=== PATIENT | male | born 1995 | race Caucasian/White ===

== ENCOUNTER 2024-12-14 21:01 | Emergency (ER) | payer MEDICAID ==
[~2024-12-14] VITALS: Ht 177.8 cm; Wt 140.7 kg
--- NOTE | 2024-12-14 21:59 | RADIOLOGY REPORT ---
DI CHEST,TWO VIEWS CLINICAL HISTORY: COUGH COMPARISON: None TECHNIQUE: Frontal and lateral view of the chest was obtained FINDINGS: Lines and Tubes: None Lungs: No focal consolidation. Pleura: No effusion. No pneumothorax. Cardiomediastinal contours: Unremarkable Bones: No acute osseous abnormality. IMPRESSION: No acute cardiopulmonary disease.
[2024-12-14] MEDS ORDERED: PRED20TA PO (23:28)
[2024-12-14] MEDS ORDERED: DOXY-1 PO (23:28)
--- NOTE | 2024-12-14 23:28 | Physician Documentation ---
History of Present Illness ~ Chief Complaint: Cough Stated Complaint: COUGH Time Seen by MD: 22:05 HPI This is a 29-year-old male history of asthma who presents with two weeks of progressively worsening cough, patient reports that he has a rescue inhaler that does somewhat help with cough and shortness of breath though stopped fully effective. Patient reports cough is productive. Patient reports no fever. Medication Reconciliation Allergies: Coded Allergies: perfume (Verified Allergy, Mild, 12/14/24) SOB Scheduled Doxycycline Hyclate (Doxycycline Hyclate), 1 CAP PO Q12H Prednisone* (Prednisone*), 3 TAB PO DAILY Past Medical History Past Medical History: Asthma Review of Systems ROS Cough as stated above in the HPI, otherwise all systems are reviewed and negative. Physical Exam Vital Signs: Temperature: 98.1, Source: Oral, Heart Rate: 92, Respiratory Rate: 17, BP: 158/102, Pulse Oximetry: 97, Weight: 140.680 Oxygen Flow Rate: 0 Physical Exam VITALS: Reviewed and as above. GENERAL: Alert, nontoxic appearing, no apparent distress. RESPIRATORY: No increased work of breathing, no respiratory distress, speaking in full clear sentences, scattered rhonchi in all mckeon otherwise adequate aeration CV: Regular rate and rhythm no murmur Progress Results/Orders Results/Orders Orders - GUERLINE BAUMANN MANAGER OF PATIENT Chest,Two Views (12/14/24 21:16) Completed Orders - GUERLINE BAUMANN MANAGER OF PATIENT Chest,Two Views (12/14/24 21:16) Doxycycline 100mg Capsule (Vibramycin 10 (12/14/24 23:30) Prednisone Tablet (Prednisone Tablet) (12/14/24 23:30) Medications Received in ER Medications (Trade) Dose Ordered Sig/Srikanth Route PRN Reason Start Time Stop Time Status Last Admin Dose Admin (VIBRAMYCIN 100mg capsule) 100 mg ONCE STAT PO 12/14/24 23:30 12/14/24 23:32 DC 12/14/24 23:43 100 MG (predniSONE tablet) 60 mg ONCE ONCE PO 12/14/24 23:30 12/14/24 23:32 DC 12/14/24 23:43 60 MG Vital Signs 12/14/24 12/14/24 21:08 23:49 Temp 98.1 98.6 Pulse 92 90 Resp 17 18 B/P (MAP) 158/102 150/99 Pulse Ox 97 99 O2 Flow Rate 0 EKG/XRAY/CT/US/VASC/MRI Chest X-Ray : Additional Comments DI CHEST,TWO VIEWS CLINICAL HISTORY: COUGH COMPARISON: None TECHNIQUE: Frontal and lateral view of the chest was obtained FINDINGS: Lines and Tubes: None Lungs: No focal consolidation. Pleura: No effusion. No pneumothorax. Cardiomediastinal contours: Unremarkable Bones: No acute osseous abnormality. IMPRESSION: No acute cardiopulmonary disease. Electronically Signed by:BRANDY DANIELLE DO Date & Time: 12/14/242155 Dictated by: BRANDY DANIELLE DO Dictation date and time: 12/14/242155 I have reviewed and agree with the radiology report. I have reviewed and interpreted the imaging as: No focal consolidation or pn eumothorax Medical Decision Making Findings This 29-year-old male presented with two weeks of progressively worsening cough, sounds demonstrated scattered rhonchi in all mckeon without wheezes or evidence of decreased aeration, patient was otherwise well-appearing with no evidence of respiratory distress or hypoxia. Symptoms and exam consistent with bronchitis. Given patient's history of asthma he will be treated with antibiotics and steroids, patient already has prescription for albuterol inhaler which he is able to utilize as needed for shortness of breath and wheezing. Remainder of exam benign , vital signs stable, and patient appropriate for outpatient follow up. Patient provided home care instructions, follow up instructions, and careful return to care precautions which he verbalized understanding of. Differential Dx:Considerations: Include: Allergic rhinitis, Influenza, Pneumonia, Pnuemonitis, URI Departure Disposition: 01 HOME / SELF CARE / HOMELESS Impression: Primary Impression: Acute bronchitis Qualified Codes: J20.9 - Acute bronchitis, unspecified Condition: Improved Discharge Instructions: Bronchitis Additional Instructions: Please take antibiotics and steroids as prescribed. Please continue use rescue inhaler as prescribed. Please follow up with your primary care provider in the next few days. Please return to the emergency department for any new or worsening concerning symptoms. Referrals: NO PRIMARY CARE PROVIDER (PCP) Prescriptions Prednisone* (Prednisone*) 20 Mg Tablet 3 TAB PO DAILY, #15 TAB Prov: GUERLINE BAUMANNP 12/14/24 Doxycycline Hyclate (Doxycycline Hyclate) 100 Mg Capsule 1 CAP PO Q12H for 5 Days, #10 CAP Prov: GUERLINE BAUMANN 12/14/24 Education Educated: Patient Educated regarding: diagnosis, treatment, prognosis, need for follow up Signature Scribe Signature: No scribe Attestation: The note accurately reflects work and decisions made by me.CHILANGO Herman 12/15/24 01:12 GUERLINE BAUMANN Dec 14, 2024 23:28
[2024-12-14] MEDS: DOXYCYCLINE 100MG CAPSULE PO STA (23:43)
[2024-12-14] MEDS: predniSONE 20 mg tablet PO ONE (23:43)
[2024-12-14 23:49] VITALS: BP 150/99; PULSE 90; RESP 18; TEMP 98.6; O2SAT 99
== END 2024-12-14 23:50 | disposition home or self-care (01) ==
LOC: ER 21:02
DX: J20.9 Acute bronchitis, unspecified (principal); J45.909 Unspecified asthma, uncomplicated; Z88.8 Allergy status to other drugs, medicaments and biological substances; Z79.899 Other long term (current) drug therapy
CPT/HCPCS: 71046; 99283; J7512